=== PATIENT | female | born 1955 | race Caucasian/White ===

== ENCOUNTER 2021-06-12 15:52 | Emergency (ER) | payer OTHER ==
[~2021-06-12] VITALS: Ht 165.1 cm; Wt 64.4 kg
[~2021-06-12 15:52] MED LIST: ALEVE220 MG; ATIVAN1 MG; DEPAKOTE ER500 MG; ZYPREXA 10 MG T10 MG
[2021-06-12] MEDS ORDERED: SIMVASTATIN5 MG PO (16:13)
[2021-06-12] MEDS ORDERED: LISINOPRIL20 MG PO (16:13)
[2021-06-12] MEDS ORDERED: NORVASC 2.5 MG2.5 M1 PO (16:14)
[2021-06-12 17:16] VITALS: BP 115/55
== END 2021-06-12 17:16 | disposition home or self-care (01) ==
LOC: M.ERS 15:52
DX: S42.411A Displaced simple supracondylar fracture without intercondylar fracture of right humerus, initial encounter for closed fracture (principal); Z90.89 Acquired absence of other organs; Z88.6 Allergy status to analgesic agent; Z88.8 Allergy status to other drugs, medicaments and biological substances; W18.39XA Other fall on same level, initial encounter; Y93.89 Activity, other specified; Y92.89 Other specified places as the place of occurrence of the external cause; Y99.8 Other external cause status

== ENCOUNTER → 2021-06-17 | Day surgery (SDC) | payer OTHER ==
[~2021-06-17] MED LIST changes: +ATIVAN1 M1 PO; -ATIVAN1 MG; +DEPAKOTE ER500 M1 PO; -DEPAKOTE ER500 MG; +LISINOPRIL20 MG PO; +NORCO5 PO; +NORVASC 2.5 MG2.5 M1 PO; +OLANZAPINE5 M1 PO; +SIMVASTATIN5 MG PO; +SODIUM PO; +VITAMIN D PO; -ZYPREXA 10 MG T10 MG; +ZYPREXA 10 MG T10 MG PO
--- NOTE | ~2021-06-17 | OP ---
[address] [address] OPERATIVE REPORT Name: SIRI ADEN Room: [facility].#: [id number] Admission: 06/17/21 Attend Phys: Aaron Olsen II Discharge: Date of : 59 Report #: [id number] THIS REPORT FOR: cc: Naa White Linda J. DO Greiner, Robert F. II DO ~ DATE OF SURGERY: 06/17/2021 PREOPERATIVE DIAGNOSIS: Right supracondylar distal humerus fracture. POSTOPERATIVE DIAGNOSES: 1. Right supracondylar distal humerus fracture. 2. Left ulnar neuropathy. PROCEDURE: 1. Open reduction and internal fixation of right supracondylar distal humerus fracture. 2. Left ulnar nerve transposition. SURGEON: Aaron Olsen II, D.O. FABRICATOR [employer]USTRIAL FURNACE: STEPHANIE Carter. ANESTHESIA: Per operative record. ESTIMATED BLOOD LOSS: Minimal. ANTIBIOTICS: Per operative record. DRAINS: None. COMPLICATIONS: None. CONDITION: The patient stable to recovery room. IMPLANTS USED: Mary distal humeral plates with appropriate locking and nonlocking screws. OPERATIVE PROCEDURE: The patient was taken to operative suite, placed supine on the operating table, given appropriate anesthesia. The patient was placed on the pegboard in the lateral position with her right arm superior. The arm was sterilely prepped and draped. A well-padded tourniquet applied to the affected upper extremity. It was inflated to 250 mmHg for approximately one hour throughout the procedure. It was sterilely prepped and draped. Surgery began by a longitudinal incision over the dorsal aspect of the right elbow, carried down to subcutaneous tissues. The ulnar nerve was found proximally [place] [address] OPERATIVE REPORT Name: SIRI ADEN Room: [facility].#: [id number] Admission: 06/17/21 Attend Phys: Aaron Olsen II Discharge: Date of : 59 Report #: [id number] through its distal segment. Transposition was then performed anteriorly due to prior ulnar neuropathy due to her fracture. The fracture was then evaluated. Two small windows were made in the triceps muscle on the medial and lateral side. This fracture was then reduced utilizing C-arm fluoroscopy for evaluation. It was then held in position with two K wires which were checked in both AP and lateral direction to be in excellent position. The lateral and medial plates were then applied and secured with locking and nonlocking screws in appropriate fashion. This fracture was visualized in both AP and lateral directions and found to be in near anatomic fashion. The fossa was intact with full elbow extension. No evidence of impingement of the plates was seen with full elbow extension or flexion. Irrigation was then performed of the wounds. The fascia was closed with a running #1 Vicryl over the triceps. The subcuticular layer was then closed utilizing a #1 Vicryl, 2-0 Vicryl and a running Monocryl stitch. Dermabond dressing and a splint were applied. The patient transported to recovery in stable condition. Counts were correct. By: 02 24Aaron Olsen II, DO /nt
[2021-06-17 06:44] LABS: HEMOGLOBIN 12.1 gm/dL (12.0-15.0); MCH 33.8 pg (26.0-34.0); MCHC 35.5 g/dL (28.0-37.0); MCV 95.2 fL (80.0-100.0); MPV 7.1 fl. (7.2-11.1); RBC 3.57 mil/uL (4.20-5.00); RDW-CV 13.6 % (10.5-14.5); WBC 4.8 thou/uL (4.0-11.0)
[2021-06-17 06:53] LABS: ANION GAP < 0 mmol/L (7-16); BUN 3 mg/dL (7-18); CALCIUM 8.1 mg/dL (8.5-10.1); CHLORIDE 92 mmol/L (98-107); CO2 30 mmol/L (21-32); CREATININE 0.5 mg/dL (0.6-1.3); GLUCOSE 93 mg/dL (70-99); POTASSIUM 3.3 mmol/L (3.5-5.1); SODIUM 121 mmol/L (136-145)
--- NOTE | 2021-06-17 12:23 | EKG ---
[place] [address] ELECTROCARDIOGRAM REPORT Name: SIRI ADEN Room: [facility]#: [id number] Admission: 06/17/21 Attend Phys: Aaron Olsen, Discharge: Date of : 59 Date of Service: 06/17/21 0725 Report #: [id number] THIS REPORT FOR: //name// [facility] Test Date: 2021-06-17 Test Time: 07:25:32 Pat Name: SIRI ADEN Department: Room: Gender: Integration Analyst: : 1955 Requested By: Shanta Mitchell Order Number: [id number] Bill MD: Hermelindo Gamble Measurements Intervals [place] Rate: 72 P: 72 GA: 199 QRS: 41 QRSD: 89 T: 51 QT: 411 QTc: 450 Interpretive Statements Sinus rhythm Borderline low voltage, extremity leads No previous ECG available for comparison Electronically Signed On 06-17-2021 12:23:06 CDT by Hermelindo Gamble [email or web address] <ELECTRONICALLY SIGNED> By: Hermelindo Gamble MD, [facility] 06/17/21 1223 4 4 Hermelindo Gamble MD, [facility] /EPI
== END | disposition home or self-care (01) ==
LOC: M.SUR 05:42
PROVIDERS: Anesthesiology; ATTEND Orthopaedic Surgery
DX: S42.411A Displaced simple supracondylar fracture without intercondylar fracture of right humerus, initial encounter for closed fracture (principal); G56.22 Lesion of ulnar nerve, left upper limb; I10 Essential (primary) hypertension; E78.5 Hyperlipidemia, unspecified; F32.9 Major depressive disorder, single episode, unspecified; F17.210 Nicotine dependence, cigarettes, uncomplicated; Z98.890 Other specified postprocedural states; Z79.899 Other long term (current) drug therapy; Z90.710 Acquired absence of both cervix and uterus; Z90.49 Acquired absence of other specified parts of digestive tract; X58.XXXA Exposure to other specified factors, initial encounter; Y93.89 Activity, other specified; Y92.89 Other specified places as the place of occurrence of the external cause; Y99.8 Other external cause status